=== PATIENT | female | born 1995 | race Caucasian/White ===

== ENCOUNTER 2020-10-28 10:19 | Emergency (ER) | payer MEDICAID ==
[~2020-10-28] VITALS: Ht 152.4 cm; Wt 99.8 kg
[2020-10-28 10:23] VITALS: BP 148/81
[2020-10-28] MEDS ORDERED: ACETAMINOPHEN EXTRA STRENGTH 500 MG TAB PO ONE (10:40)
[2020-10-28 11:20] VITALS: BP 132/81
== END 2020-10-28 11:20 | disposition home or self-care (01) ==
LOC: MED 10:19
DX: S50.11XA Contusion of right forearm, initial encounter (principal); M25.531 Pain in right wrist; V89.2XXA Person injured in unspecified motor-vehicle accident, traffic, initial encounter; Y93.89 Activity, other specified; Y92.89 Other specified places as the place of occurrence of the external cause; Y99.8 Other external cause status
CPT/HCPCS: 73090; 99283